=== PATIENT | female | born 1955 | race Two or more races ===

== ENCOUNTER 2023-11-21 08:26 | Emergency (ER) | payer OTHER ==
[~2023-11-21] VITALS: Ht 157.5 cm; Wt 46.1 kg
[2023-11-21 08:35] VITALS: TEMP 98.6
[2023-11-21 08:38] VITALS: BP 106/72; PULSE 90; RESP 18; O2SAT 98
[2023-11-21 09:36] LABS: Urine Bacteria NONE SEEN /hpf (None Seen); Urine Blood Negative /uL (Negative); Urine Clarity Clear (Clear); Urine Protein, UAD Negative (Negative); Urine Urobilinogen Normal (Negative); Urine WBC 2 /hpf (0 - 5); Urine pH 6.5 (5.0-8.0)
[2023-11-21 09:39] LABS: Urine Color Straw (Yellow)
[2023-11-21] MEDS: ACETAMINOPHEN 500 MG TAB PO ONE (09:46)
[2023-11-21] MEDS: DexAMETHasone 4 MG TAB PO ONE (09:46)
[2023-11-21] MEDS ORDERED: ACET500T58 PO (09:54)
[2023-11-21] MEDS ORDERED: NITR-87 PO (09:54)
[2023-11-21] MEDS ORDERED: LIDO5CRE14 EX (09:54)
== END 2023-11-21 10:11 | disposition home or self-care (01) ==
LOC: ER 08:26
DX: S39.012A Strain of muscle, fascia and tendon of lower back, initial encounter (principal); N30.90 Cystitis, unspecified without hematuria; X58.XXXA Exposure to other specified factors, initial encounter; Y93.89 Activity, other specified; Y92.89 Other specified places as the place of occurrence of the external cause; Y99.8 Other external cause status
CPT/HCPCS: 81001; 99283; J8540